=== PATIENT | female | born 1945 | race Caucasian/White ===

== ENCOUNTER 2021-05-04 03:00 | Inpatient (IN) ==
[2021-05-04] MEDS ORDERED: Naloxone 0.4 MG/ML INJ IVP PRN (06:49)
[2021-05-04] MEDS ORDERED: Melatonin 3 MG TABLET PO PRN (06:49)
[2021-05-04] MEDS ORDERED: Ondansetron ODT 4 MG TAB.RAPDIS SL PRN (06:59)
[2021-05-04] MEDS: Aspirin Enteric Coated 81 MG Tablet PO SCH (09:28)
[2021-05-04] MEDS ORDERED: Acetaminophen 325 MG TABLET PO PRN (15:27)
[2021-05-04] MEDS ORDERED: QUEtiapine Fumarate 25 MG TABLET PO SCH (21:00)
[2021-05-04] MEDS: Budesonide/Formoterol 160/4.5 1 PUFF INH IH SCH (21:25)
[2021-05-05 07:17] LABS: Basophils % 0.3 %; Eosinophils # 0.3 K/mcL (0.0-0.6); Eosinophils % 3.9 %; Hematocrit 34.1 % (35.3-44.9); Hemoglobin 10.8 g/dL (11.5-15.4); Immature Granulocytes % 0.4 % (0-4); Lymphocytes % 27.6 %; Mean Corpuscular HGB Conc 31.7 g/dL (31.6-35.5); Mean Corpuscular Hemoglobin 26.2 pg (28.0-33.3); Mean Corpuscular Volume 82.6 fL (83.0-100.0); Mean Platelet Volume 9.4 fL (9.4-12.4); Monocytes # 0.7 K/mcL (0.0-1.3); Monocytes % 9.9 %; Neutrophils # 4.2 K/mcL (1.6-8.9); Platelet Count 171 K/mcL (140-400); Red Blood Count 4.13 M/mcL (3.82-4.97); Segmented Neutrophils % 57.9 %; White Blood Count 7.3 K/mcL (4.3-11.1)
[2021-05-05 07:43] LABS: BUN/Creatinine Ratio 25 (6-26); Blood Urea Nitrogen 18 mg/dL (8-23); Carbon Dioxide 30 mEq/L (23-29); Chloride 99 mEq/L (98-107); Glucose 116 mg/dL (70-105); Osmolality,Calculated 289 (280-300); Potassium 3.7 mEq/L (3.5-5.1); Sodium 138 mEq/L (136-145); eGFR For African Americans > 60 (> 60); eGFR For Non-African Americans > 60 (> 60)
[2021-05-05] MEDS ORDERED: cefTRIAXone 1,000 MG in Water for inj. (sterile) 10 ML IVP SCH (09:00)
[2021-05-05] MEDS ORDERED: Furosemide 40 MG TABLET PO SCH (09:00)
[2021-05-05] MEDS: Budesonide/Formoterol 160/4.5 1 PUFF INH IH SCH (10:15)
[2021-05-05] MEDS: Aspirin Enteric Coated 81 MG Tablet PO SCH (10:18)
[2021-05-05 14:54] VITALS: RESP 18; TEMP 97.7
[2021-05-05 19:49] VITALS: BP 93/62; PULSE 80; O2SAT 99
== END 2021-05-05 20:32 | DRG 690 ==
LOC: INPPIK
PROVIDERS: ADMIT Student in an Organized Health Care Education/Training Program; ATTEND Internal Medicine